=== PATIENT | male | born 1975 | race Two or more races ===

== ENCOUNTER 2018-01-20 14:05 | Emergency (ER) | payer MEDICAID ==
[~2018-01-20] VITALS: Ht 167.6 cm; Wt 72.6 kg
[~2018-01-20 14:05] MED LIST: ACETAMINOPHEN500 M3 ORAL; CLINDAMYCIN HC300 MG ORAL; IBUPROFEN600 MG ORAL; KEFLEX500 MG ORAL
[2018-01-20 14:22] VITALS: BP 112/63
--- NOTE | 2018-01-20 15:33 | Emergency Room Report ---
History of Present Illness General Chief Complaint: General Complaint Present Illness HPI 43-year-old male presents to the emergency department complaining of 8 out of 10 in severity localized pain to the right side of his neck and posterior shoulder 2 weeks. Patient reports palpable area of swelling and "tightness". Patient states symptoms onset was when he awoke one morning and he thought initially that he had a stiff neck. Patient states that on some occasions his symptoms will improve however throughout the course of the day his symptoms returned. He denies trauma or fall, fevers, chills, or open wounds. Denies unilateral weakness. Denies numbness tingling or loss of sensation or gross motor movements of the extremities, incontinence of bowel or bladder. Denies CP , Palpitations, LOC, AMS, dizziness, Changes in Vision, weakness or a sudden severe headache. Allergies: Coded Allergies: NO KNOWN ALLERGIES (Unverified Allergy, Unknown, 04/29/15) Patient History Past Medical History: see triage record Past Surgical History: none Pertinent Family History: none Reviewed Nursing Documentation: PMH: Agreed; PSxH: Agreed Nursing Documentation-PMH Hx Hypertension: No - one kidney abd surgery lung punctured Hx Asthma: Yes Review of Systems All Other Systems: negative except mentioned in HPI Physical Exam Vital Signs Date Time Temp Pulse Resp B/P (MAP) Pulse Ox O2 Delivery O2 Flow Rate FiO2 01/20/18 14:10 98.7 73 16 112/63 92 Room Air 98.8 Sp02 EP Interpretation: reviewed, normal General Appearance: no apparent distress, alert, GCS 15, non-toxic Head: normocephalic, atraumatic Eyes: bilateral eye normal inspection, bilateral eye PERRL ENT: hearing grossly normal, normal voice Neck: full range of motion, no bony tend, tender lateral - right lateral radiates down into trapezius. Respiratory: lungs clear, normal breath sounds, speaking full sentences Cardiovascular #1: regular rate, rhythm Musculoskeletal: back normal, gait/station normal, normal range of motion, tender - right lateral paracervical ttp primarily in the right trapezius area. no midline ttp, no bony ttp. Neurologic: alert, oriented x3, responsive, motor strength/tone normal, sensory intact, speech normal, grossly normal Psychiatric: judgement/insight normal Skin: normal color, no rash, warm/dry, well hydrated, other - no evidence of obvious infeciton/ abscess. Lymphatic: no adenopathy Medical Decision Making PA Attestation Dr. Rios is my supervising Physician whom patient management has been discussed with. Diagnostic Impression: Primary Impression: Cervical myofascial strain Qualified Codes: S16.1XXA - Strain of muscle, fascia and tendon at neck level , initial encounter Additional Impression: Trapezius muscle spasm ER Course 43-year-old male presents to the emergency department complaining of 8 out of 10 in severity localized pain to the right side of his neck and posterior shoulder 2 weeks. Patient reports palpable area of swelling and "tightness". Patient states symptoms onset was when he awoke one morning and he thought initially that he had a stiff neck. Patient states that on some occasions his symptoms will improve however throughout the course of the day his symptoms returned. He denies trauma or fall, fevers, chills, or open wounds. Denies unilateral weakness. Denies numbness tingling or loss of sensation or gross motor movements of the extremities, incontinence of bowel or bladder. Denies CP , Palpitations, LOC, AMS, dizziness, Changes in Vision, weakness or a sudden severe headache. Ddx considered but are not limited to Fracture, dislocation, contusion, epidural abscess, Sprain/Strain/Spasm Vital signs: are WNL, pt. is afebrile H&PE are most consistent with muscle spasm, ORDERS: none required at this time. ED INTERVENTIONS: none required at this time. DISCHARGE: At this time pt. is stable for d/c to home. Will provide printed patient care instructions, and any necessary prescriptions. Care plan and follow up instructions have been discussed with the patient prior to discharge. Last Vital Signs Date Time Temp Pulse Resp B/P (MAP) Pulse Ox O2 Delivery O2 Flow Rate FiO2 01/20/18 14:22 98.8 89 16 112/63 92 Room Air 98.8 Disposition: HOME, SELF-CARE Condition: Stable Scripts Lidocaine (Lidoderm) 1 Each Adh..patch 1 PATCH TOPIC DAILY PRN for For Pain, #30 PATCH 0 Refills Patch(es) may remain in place for up to 12 hours in any 24-hour period. Prov: Mia Mims 01/20/18 Ibuprofen* (MOTRIN*) 600 Mg Tablet 600 MG ORAL THREE TIMES A DAY, #20 TAB 0 Refills Prov: Mia Mims 7/27/18 Methocarbamol* (ROBAXIN*) 500 Mg Tablet 1000 MG PO TID, #42 TAB 0 Refills Prov: Mia Mims 01/20/18 Referrals: CATHLEEN HICKEY,REFERRING (PCP) Patient Instructions: Muscle Cramps and Spasms, [id number], Muscle Pain, Adult Additional Instructions: Take medications as directed. Follow up with a Primary Care Provider in 3-5 days, even if your symptoms have resolved. --Please review list of primary care clinics, if you do not already have a primary care provider Return sooner to ED if new symptoms occur, or current symptoms become worse. Do not drink alcohol, drive, or operate heavy machinery while taking muscle relaxers as this may cause drowsiness. - Please note that this Emergency Department Report was dictated using [employer] machine operator technology software, occasionally this can lead to erroneous entry secondary to interpretation by the dictation equipment. Mia Mims Jan 20, 2018 15:33
[2018-01-20] MEDS ORDERED: IBUPROFEN600 MG ORAL (15:37)
[2018-01-20] MEDS ORDERED: LIDODERM700 M1 TOPIC (15:37)
[2018-01-20] MEDS ORDERED: ROBAXIN500 MG PO (15:37)
[2018-01-20] MEDS ORDERED: Methocarbamol 500mg tab ORAL ONE (15:45)
[2018-01-20 16:30] VITALS: BP 106/79
[2018-01-20 16:31] VITALS: BP 112/63
== END 2018-01-20 16:31 | disposition home or self-care (01) ==
LOC: EMR 14:53
DX: S16.1XXA Strain of muscle, fascia and tendon at neck level, initial encounter (principal); X58.XXXA Exposure to other specified factors, initial encounter; Y92.9 Unspecified place or not applicable; M62.830 Muscle spasm of back; J45.909 Unspecified asthma, uncomplicated
CPT/HCPCS: 99283

== ENCOUNTER 2019-10-07 18:43 | Emergency (ER) | payer MEDICAID ==
[~2019-10-07] VITALS: Ht 165.1 cm; Wt 72.6 kg
[~2019-10-07 18:43] MED LIST changes: +ACETAMINOPHEN-1 EAC1 ORAL; +LIDODERM700 M1 TOPIC; +ROBAXIN500 MG PO
[2019-10-07 18:56] VITALS: BP 141/80
--- NOTE | 2019-10-07 18:57 | NUR ---
ED Nurse Note: pt walked in to ED due to pain on left flank for 1 week. per pt, "it feels sore." denies any urinary sx. no fever. per pt, has only one kidney and worried bc pain gets worse. AAO x4. respirations even and non-labored noted. skin warm to touch. no open wound noted. will wait for the further order.
--- NOTE | 2019-10-07 19:07 | NUR ---
HAND-OFF: Report given to YAAKOV Betancourt.
--- NOTE | 2019-10-07 19:08 | NUR ---
ED Nurse Note: Received report from YAAKOV March. Patient in room, no acute distress noted.
--- NOTE | 2019-10-07 19:10 | NUR ---
ED Nurse Note: Urine collected and sent to lab.
--- NOTE | 2019-10-07 19:27 | Emergency Room Report ---
History of Present Illness General Chief Complaint: Pain Source: Patient Present Illness HPI 44-year-old male presents the ED for evaluation of left flank pain. Started 1 week ago. Dull, 5 out of 10, nonradiating. Denies fevers or chills. Denies nausea or vomiting. Denies dysuria or hematuria. Concerned it may be his kidney. 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 No other aggravating relieving factors. Denies any other associated symptoms Allergies: Coded Allergies: NO KNOWN ALLERGIES (Unverified Allergy, Unknown, 04/29/15) COVID-19 Screening Contact w/high risk pt: No Recent Travel to affected area: No Experienced COVID-19 symptoms?: No Patient History Past Medical History: asthma Past Surgical History: none, other - R nephrectomy Pertinent Family History: none Social History: Denies: smoking, alcohol use, drug use Immunizations: UTD Reviewed Nursing Documentation: PMH: Agreed; PSxH: Agreed Nursing Documentation-PMH Past Medical History: No History, Except For Hx Hypertension: No - one kidney abd surgery lung punctured Hx Asthma: Yes Review of Systems All Other Systems: negative except mentioned in HPI Physical Exam Vital Signs Date Time Temp Pulse Resp B/P (MAP) Pulse Ox O2 Delivery O2 Flow Rate FiO2 10/07/19 18:48 99.1 101 17 141/80 (100) 98 Room Air Sp02 EP Interpretation: reviewed, normal General Appearance: no apparent distress, alert, GCS 15, non-toxic Head: normocephalic, atraumatic Eyes: bilateral eye normal inspection, bilateral eye PERRL ENT: hearing grossly normal, normal pharynx, no angioedema, normal voice Neck: full range of motion, supple/symm/no masses Respiratory: chest non-tender, lungs clear, normal breath sounds, speaking full sentences Cardiovascular #1: regular rate, rhythm, no edema Cardiovascular #2: 2+ carotid (R), 2+ carotid (L), 2+ radial (R), 2+ radial (L) , 2+ dorsalis pedis (R), 2+ dorsalis pedis (L) Gastrointestinal: normal bowel sounds, non tender, soft, non-distended, no guarding, no rebound Rectal: deferred Genitourinary: normal inspection, CVA tenderness (L) Musculoskeletal: back normal, normal range of motion, gait/station normal, non- tender Neurologic: alert, motor strength/tone normal, oriented x3, sensory intact, responsive, speech normal Psychiatric: judgement/insight normal, memory normal, mood/affect normal, no suicidal/homicidal ideation Reflexes: 3+ bicep (R), 3+ bicep (L), 3+ tricep (R), 3+ tricep (L), 3+ knee (R) , 3+ knee (L) Skin: no rash Lymphatic: no adenopathy Medical Decision Making Diagnostic Impression: Primary Impression: Flank pain ER Course Hospital Course 44 yo M presents with L flank pain Differential diagnosis includes-appendicitis, cholecystitis, kidney stone, pyelonephritis Clinical course Patient placed on stretcher. After initial history and physical I ordered UA and CT scan UA - no hematuria, no bacteria CT scan shows atrophic scarred R kidney, L kidney unremarkable. no evidence of kidney stones I discussed findings with patient. Reassurance given. Patient was worried because his right kidney is nonfunctional. I explained that should follow-up with his PMD. Safe for discharge for close outpatient follow-up I feel this is a highly complex case requiring extensive working including EKG/ Rhythm strip, Xray/CT/US, Blood/urine lab work, repeat exams while in ED, and administration of strong opiates/narcotics for pain control, admission to hospital or close patient follow up. Diagnosis - flank pain Stable and discharged to home. Followup with PMD. Return to ED if symptoms recur or worsen Labs Test 10/07/19 19:09 Urine Color Radha Urine Appearance Clear Urine pH 5 (4.5-8.0) Urine Specific [place] 1.025 (1.005-1.035) Urine Protein 1+ (NEGATIVE) Urine Glucose (UA) Negative (NEGATIVE) Urine Ketones 1+ (NEGATIVE) Urine Blood Negative (NEGATIVE) Urine Nitrite Negative (NEGATIVE) Urine Bilirubin 1+ (NEGATIVE) Urine Ictotest Positive (NEGATIVE) Urine Urobilinogen 4 MG/DL (0.0-1.0) Urine Leukocyte Esterase 1+ (NEGATIVE) Urine RBC 0-2 /HPF (0 - 0) Urine WBC 0-2 /HPF (0 - 0) Urine Squamous Epithelial Cells None /LPF (NONE/OCC) Urine Bacteria None /HPF (NONE) Urine Mucus Few /LPF (NONE/OCC) CT/MRI/US Diagnostic Results CT/MRI/US Diagnostic Results : Imaging Test Ordered: CT A/P Impression COMPARISON: No relevant prior studies available. FINDINGS: Lung bases: Unremarkable. ABDOMEN: Liver: Mild fatty liver. Gallbladder and bile ducts: Mild gallbladder distention. No radiodense gallstones. Pancreas: Unremarkable. Spleen: Unremarkable. Adrenals: Unremarkable. Kidneys and ureters: Right renal scarring and atrophy. Stomach and bowel: No charline mural thickening. Nonobstructive bowel gas pattern. PELVIS: Appendix: Appendix not identified. Bladder: Unremarkable. Reproductive: Vasectomy clips. ABDOMEN and PELVIS: Intraperitoneal space: Unremarkable. Bones/joints: Spondylolysis at L5. Soft tissues: Fat-containing left inguinal hernia. Vasculature: Unremarkable. No abdominal aortic aneurysm. Lymph nodes: Predominantly small mesenteric nodes. IMPRESSION: 1. Mild gallbladder distention. No radiodense gallstones. 2. Right renal scarring and atrophy. 3. Appendix not identified. Last Vital Signs Date Time Temp Pulse Resp B/P (MAP) Pulse Ox O2 Delivery O2 Flow Rate FiO2 10/07/19 18:56 99.1 101 17 141/80 98 Room Air Status: improved Disposition: HOME, SELF-CARE Condition: Stable Referrals: CATHLEEN HICKEYREFERRING (PCP) Ian Lopez MD Oct 07, 2019 19:27
[2019-10-07 19:28] LABS: APPEARANCE,URINE CLEAR; BILIRUBIN, URINE 1+ (NEGATIVE); COLOR,URINE AMBER; GLUCOSE, URINE (UA) NEGATIVE (NEGATIVE); KETONES,URINE 1+ (NEGATIVE); LEUKOCYTE ESTERASE ,URINE 1+ (NEGATIVE); NITRITE,URINE NEGATIVE (NEGATIVE); PH,URINE 5 (4.5-8.0); PROTEIN,URINE 1+ (NEGATIVE); UROBILINOGEN,URINE 4 MG/DL (0.0-1.0)
--- NOTE | 2019-10-07 19:44 | Diagnostic Imaging Report ---
EXAM: CT Abdomen and Pelvis Without Intravenous Contrast CLINICAL HISTORY: FLANK TECHNIQUE: Axial computed tomography images of the abdomen and pelvis without intravenous contrast. CTDI is 5.5 mGy and DLP is 3 0 1.3 mGy-cm. One or more of the following dose reduction techniques were used: automated exposure control, adjustment of the mA and/or kV according to patient size, use of iterative reconstruction technique. COMPARISON: No relevant prior studies available. FINDINGS: Lung bases: Unremarkable. ABDOMEN: Liver: Mild fatty liver. Gallbladder and bile ducts: Mild gallbladder distention. No radiodense gallstones. Pancreas: Unremarkable. Spleen: Unremarkable. Adrenals: Unremarkable. Kidneys and ureters: Right renal scarring and atrophy. Stomach and bowel: No charline mural thickening. Nonobstructive bowel gas pattern. PELVIS: Appendix: Appendix not identified. Bladder: Unremarkable. Reproductive: Vasectomy clips. ABDOMEN and PELVIS: Intraperitoneal space: Unremarkable. Bones/joints: Spondylolysis at L5. Soft tissues: Fat-containing left inguinal hernia. Vasculature: Unremarkable. No abdominal aortic aneurysm. Lymph nodes: Predominantly small mesenteric nodes. IMPRESSION: 1. Mild gallbladder distention. No radiodense gallstones. 2. Right renal scarring and atrophy. 3. Appendix not identified.
[2019-10-07 20:05] VITALS: BP 138/84
--- NOTE | 2019-10-07 20:05 | NUR ---
ER DISCHARGE NOTE: Patient is cleared to be discharged per ERMD, pt is aox4, on room air, with stable vital signs. pt was given dc and prescription instructions, pt was able to verbalize understanding, pt id band removed without complications. pt is able to ambulate with steady gait. pt took all belongings.
== END 2019-10-07 20:05 | disposition home or self-care (01) ==
LOC: EMR 19:05
DX: R10.9 Unspecified abdominal pain (principal); K76.0 Fatty (change of) liver, not elsewhere classified; K40.90 Unilateral inguinal hernia, without obstruction or gangrene, not specified as recurrent; M47.816 Spondylosis without myelopathy or radiculopathy, lumbar region
CPT/HCPCS: 74176; 81003; Z7502; 99284